=== PATIENT | female | born 1980 | race Caucasian/White ===

== ENCOUNTER 2016-12-06 01:43 | Emergency (ER) | payer SELFPAY ==
[~2016-12-06] VITALS: Ht 162.6 cm; Wt 72.0 kg
[2016-12-06] MEDS ORDERED: SODIUM CHLORIDE 0.9% 1,000ML IVBOLUS ONE (02:30)
[2016-12-06] MEDS ORDERED: KETOROLAC 30 MG/1 ML IVPush ONE (02:30)
[2016-12-06] MEDS ORDERED: SODIUM CHLORIDE FLUSH 10ML SYR IVF ONE (02:30)
[2016-12-06] MEDS ORDERED: KETOROLAC 30 MG/1 ML ONE (02:46)
[2016-12-06 02:48] LABS: ASPARTATE AMINO TRANSFERASE 45 U/L (15-37); BLOOD UREA NITROGEN 22 mg/dL (7-18)
[2016-12-06 03:52] VITALS: BP 117/80
[2016-12-06] MEDS ORDERED: MORPHINE SULFATE 4 MG/ML, 1ML ONE (04:18)
[2016-12-06] MEDS ORDERED: MORPHINE SULFATE 4 MG/ML, 1ML IVPush ONE (04:30)
== END 2016-12-06 04:32 | disposition home or self-care (01) ==
LOC: ED 04:26
DX: K57.30 Diverticulosis of large intestine without perforation or abscess without bleeding (principal); N20.0 Calculus of kidney; N30.00 Acute cystitis without hematuria
CPT/HCPCS: 36415; 74176; 80053; 81001; 84703; 85025; 87077; 87086; 87147; 87186; 96361; 96374; 96375; 99285; J1885; J7030

== ENCOUNTER 2016-12-23 18:55 | Emergency (ER) | payer SELFPAY ==
[~2016-12-23] VITALS: Ht 162.6 cm; Wt 72.0 kg
[2016-12-23 18:58] VITALS: BP 150/84
[2016-12-23] MEDS ORDERED: IBUPROFEN 200 MG TABLET ONE (19:18)
[2016-12-23] MEDS ORDERED: IBUPROFEN 200 MG TABLET PO ONE (19:30)
== END 2016-12-23 20:59 | disposition home or self-care (01) ==
LOC: ED 19:39
DX: S93.401A Sprain of unspecified ligament of right ankle, initial encounter (principal); S93.601A Unspecified sprain of right foot, initial encounter; W10.9XXA Fall (on) (from) unspecified stairs and steps, initial encounter; Y93.89 Activity, other specified; Y92.89 Other specified places as the place of occurrence of the external cause; Y99.8 Other external cause status
CPT/HCPCS: 99284

== ENCOUNTER 2017-03-02 16:59 | Emergency (ER) | payer MEDICAID ==
[~2017-03-02] VITALS: Ht 162.6 cm; Wt 76.1 kg
[2017-03-02] MEDS ORDERED: SODIUM CHLORIDE 0.9% 1,000 ML IV ONE (17:18)
[2017-03-02] MEDS ORDERED: KETOROLAC 30 MG/1 ML IVPush ONE (17:30)
[2017-03-02] MEDS ORDERED: METOCLOPRAMIDE 5 MG/ML, 2ML IVPush ONE (17:30)
[2017-03-02] MEDS ORDERED: DIPHENHYDRAMINE 50 MG/ML, 1ML IVPush ONE (17:30)
[2017-03-02] MEDS ORDERED: SODIUM CHLORIDE 0.9% 1,000ML IVBOLUS ONE (17:30)
[2017-03-02] MEDS ORDERED: METOCLOPRAMIDE 5 MG/ML, 2ML ONE (17:39)
[2017-03-02] MEDS ORDERED: DIPHENHYDRAMINE 50 MG/ML, 1ML ONE (17:39)
[2017-03-02] MEDS ORDERED: KETOROLAC 30 MG/1 ML ONE (17:48)
[2017-03-02 17:53] LABS: HEMATOCRIT 48.4 % (34.6-47.8); HEMOGLOBIN 16.5 g/dL (11.7-16.4); WHITE BLOOD COUNT 11.6 x10^3/uL (3.4-10)
[2017-03-02 18:04] LABS: BLOOD UREA NITROGEN 17 mg/dL (7-18)
[2017-03-02 18:51] VITALS: BP 115/60
== END 2017-03-02 19:20 | disposition home or self-care (01) ==
LOC: ED 18:30
DX: G43.011 Migraine without aura, intractable, with status migrainosus (principal); J01.10 Acute frontal sinusitis, unspecified
CPT/HCPCS: 36415; 70450; 71010; 80048; 82040; 85025; 96361; 96374; 96375; 99285; J1200; J1885; J2765; J7030